=== PATIENT | female | born 1995 | race Caucasian/White ===

== ENCOUNTER 2024-09-19 08:52 | Emergency (ER) | payer OTHER, SELFPAY ==
[2024-09-19 09:09] VITALS: BP 135/87; PULSE 91; RESP 18; TEMP 36.9; O2SAT 100; BMI 37.1
[2024-09-19 09:51] LABS: Add Urine Microscopic? NO
[2024-09-19 09:54] VITALS: BP 132/86; PULSE 95; O2SAT 100
[2024-09-19 10:19] LABS: Bilirubin Urine Negative (Negative); Blood Urine Negative (Negative); Glucose Urine UA Negative (Normal); Ketones Urine Negative (Negative); Leukocyte Esterase Urine Negative (Negative); Nitrate Urine Negative (Negative); Protein Urine Negative (Negative); Specific Gravity, Urine 1.008 (1.005-1.030); Urine Appearance Clear (CLEAR); Urine Color Yellow (Yellow); pH Urine 6.5 (5-7)
[2024-09-19 10:21] LABS: Add Urine Culture? No; Charge for UA Resulting for Rev
--- NOTE | 2024-09-19 10:34 | W.ED.FEMALGU ---
HPI - Female Genitourinary General: Chief complaint: Vaginal Bleeding Stated complaint: heavy bleeding and cramps Time Seen by Provider: 09/19/24 09:30 History of Present Illness: 28 female presents emergency room with mental menorrhagia. She states her periods are usually fairly regular she does not believe she is she has not previously been . She is not on any kind of control. She been having some light spotting for the last several days and today's began having much more spotting cramping and passing some clots at times. No dysuria urgency or frequency no other abdominal pain or flank pain. No vomiting no diarrhea Associated symptoms: Deny abdominal pain Related Data Home Medications Medication Instructions Recorded Confirmed acetaminophen 500 mg tablet 500 mg PO Q6H PRN Pain 09/19/24 09/19/24 (Tylenol Extra Strength) escitalopram oxalate 10 mg tablet 10 mg PO QPM 09/19/24 09/19/24 Previous Rx's Medication Instructions Recorded medroxyprogesterone 10 mg tablet 10 mg PO DAILY 10 days #10 tabs 09/19/24 Allergies Allergy/AdvReac Type Severity Reaction Status Date / Time prednisone Allergy ALGY-Hives Verified 09/19/24 09:13 Review of Systems Const: Denies: fever(s) or chills Card: Denies: chest pain Resp: Denies: dyspnea GI: Denies: abdominal pain : Reports: vaginal bleeding; Denies: dysuria, urinary frequency or urinary urgency Musc: Denies: neck pain or back pain Skin/Breast: Denies: rash Physical Exam Const: GENERAL APPEARANCE: cooperative ORIENTATION/CONSCIOUSNESS: Yes awake, Yes oriented to person, Yes oriented to place and Yes oriented to time HENMT: COMMON NORMALS: normocephalic, atraumatic and hearing grossly normal bilaterally HEAD & SCALP: normocephalic and atraumatic Resp: COMMON NORMALS: normal respiratory effort, No retractions, No use of accessory muscles and clear to auscultation bilaterally AUSCULTATION: clear to auscultation bilaterally Cardio: COMMON NORMALS: regular rate, regular rhythm and No murmurs present (Cardio) RATE: regular rate RHYTHM: regular rhythm GI: COMMON NORMALS: Soft to palpation and No hepatosplenomegaly present AUSCULTATION: Yes normoactive bowel sounds PALPATION: Yes Soft to palpation, No Tenderness to palpation present (GI), No Guarding due to palpation present (GI) and Yes No hepatosplenomegaly present Extremity: COMMON NORMALS: normal to inspection, capillary refill normal, no clubbing, cyanosis or edema, no calf tenderness and no pedal edema Neuro: SENSORIUM/ORIENTATION: Yes oriented to person, Yes oriented to place and Yes oriented to time Skin: COMMON NORMALS: no rashes or lesions noted GENERAL SKIN EXAM: no rashes or lesions noted Course Vital Signs: Vital signs: Vital Signs Temperature 98.4 F 09/19/24 09:09 Pulse Rate 86 09/19/24 11:52 Respiratory Rate 18 09/19/24 09:09 Blood Pressure 137/93 09/19/24 11:52 Pulse Oximetry 100 09/19/24 11:52 Oxygen Delivery Me thod Room Air 09/19/24 09:09 MDM - Female Medical Decision Making Hemoglobin stable test negative put patient on a medroxyprogesterone course discussed how this works that she will have a heavy period after she finishes a course for bleeding is not stopped next couple days she should contact her doctor to potentially to have the dose increased. 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 Lab Data I reviewed the patient's lab results. 09/19/24 10:40 09/19/24 10:40 Laboratory Results WBC 9.75 10^3/uL (3.29-11.43) 09/19/24 10:40 RBC 4.74 10^6/uL (3.85-5.65) 09/19/24 10:40 Hgb 14.20 g/dL (11.27-16.99) 09/19/24 10:40 Hct 43.6 % (36-47) 09/19/24 10:40 MCV 92.0 fl (85-98) 09/19/24 10:40 MCH 30.0 pg (27-33) 09/19/24 10:40 MCHC 32.6 g/dL (30-55) 09/19/24 10:40 RDW 13.0 % (12.1-15.1) 09/19/24 10:40 Plt Count 343 10^3/cmm (157-399) 09/19/24 10:40 MPV 9.6 fL (7.4-10.4) 09/19/24 10:40 Neut % (Auto) 68.3 % 09/19/24 10:40 Lymph % (Auto) 23.3 % 09/19/24 10:40 [place] % (Auto) 6.2 % 09/19/24 10:40 Eos % (Auto) 1.4 % 09/19/24 10:40 Baso % (Auto) 0.4 % 09/19/24 10:40 Neut # (Auto) 6.66 10^3/uL (1.8-7.7) 09/19/24 10:40 Lymph # (Auto) 2.3 10^3/uL (0.8-4.8) 09/19/24 10:40 [place] # (Auto) 0.6 10^3/uL (0.2-0.9) 09/19/24 10:40 Eos # (Auto) 0.1 10^3/uL (0.0-0.8) 09/19/24 10:40 Baso # (Auto) 0.0 10^3/uL (0.0-0.1) 09/19/24 10:40 Nucleated RBC % (auto) 0 % 09/19/24 10:40 Nucleated RBCs # 0.0 /100WBC 09/19/24 10:40 Sodium 140 mmol/L (136-145) 09/19/24 10:40 Potassium 3.8 mmol/L (3.5-5.1) 09/19/24 10:40 Chloride 104 mmol/L (98-107) 09/19/24 10:40 Carbon Dioxide 24 mmol/L (22-29) 09/19/24 10:40 Anion Gap 15.8 (5-19) 09/19/24 10:40 BUN 8 mg/dL (6-20) 09/19/24 10:40 Creatinine 0.6 mg/dL (0.5-0.9) 09/19/24 10:40 GFR Calculation 120.8 mL/min (90-130) 09/19/24 10:40 Glucose 99 mg/dL (65-115) 09/19/24 10:40 Calculated Osmolality 288 mOsm/kg (285-295) 09/19/24 10:40 Calcium 8.4 mg/dL (8.5-10.5) L 09/19/24 10:40 Total Bilirubin 0.2 mg/dL (0.15-1.2) 09/19/24 10:40 AST 21 U/L (0-32) 09/19/24 10:40 ALT 29 U/L (0-33) 09/19/24 10:40 Alkaline Phosphatase 108 U/L (35-105) H 09/19/24 10:40 Total Protein 7.1 g/dL (6.6-8.7) 09/19/24 10:40 Albumin 4.1 g/dL (3.5-5.2) 09/19/24 10:40 Globulin 3.0 g/dL (1.3-4.6) 09/19/24 10:40 HCG, Qual Negative (Negative) 09/19/24 10:40 Urine Color Yellow (Yellow) 09/19/24 09:43 Urine Appearance Clear (CLEAR) 09/19/24 09:43 Urine pH 6.5 (5-7) 09/19/24 09:43 Ur Specific [place] 1.008 (1.005-1.030) 09/19/24 09:43 Urine Protein Negative (Negative) 09/19/24 09:43 Urine Glucose (UA) Negative (Normal) 09/19/24 09:43 Urine Ketones Negative (Negative) 09/19/24 09:43 Urine Blood Negative (Negative) 09/19/24 09:43 Urine Nitrate Negative (Negative) 09/19/24 09:43 Urine Bilirubin Negative (Negative) 09/19/24 09:43 Urine Urobilinogen 1.0 mg/dL (Negative) 09/19/24 09:43 Ur Leukocyte Esterase Negative (Negative) 09/19/24 09:43 Amorphous Sediment Not Reportable 09/19/24 09:43 All radiology interpretation(s) finalized by discharge Discharge Plan Discharge Patient Disposition: Home Clinical Impression: Menometrorrhagia Condition: Stable Prescriptions: New medroxyprogesterone 10 mg tablet 10 mg PO DAILY 10 Days Qty: 10 0RF No Action acetaminophen [Tylenol Extra Strength] 500 mg Tablet 500 mg PO Q6H PRN (Reason: Pain) escitalopram oxalate 10 mg tablet 10 mg PO QPM Discharge Orders: Discharge ED (Routine); Ordered 09/19/24 Ordered By: Porter Morris Referrals: Rocky Mai [Family Provider] - Discharge Diet: Usual diet Discharge Activity: Increase activity as tolerated Patient Instructions: Opioid Safety, Pain Management Activity Restrictions/Additional Instructions: Thank you for choosing [facility] for your healthcare needs today. It is very important that you follow up as instructed or that you return to the Emergency Department should you have concerns or if your condition changes or worsens in any way. You are seen in the emergency room with complaints of pelvic cramping and vaginal bleeding. Your hemoglobin is stable your test was negative. Recommend you take medroxyprogesterone 10 mg once daily for 7 days at the end of that time you will have a heavy period. You should follow-up with your primary care physician. Coding Level of Care Code ED Fagoting Machine Operator for Tyree Rosa
[2024-09-19 10:53] LABS: Basophils % 0.4 %; Eosinophils # 0.1 10^3/uL (0.0-0.8); Eosinophils % 1.4 %; Hematocrit 43.6 % (36-47); Lymphocytes # 2.3 10^3/uL (0.8-4.8); Lymphocytes % 23.3 %; Mean Corpuscular HGB Conc 32.6 g/dL (30-55); Mean Platelet Volume 9.6 fL (7.4-10.4); Monocytes # 0.6 10^3/uL (0.2-0.9); Monocytes % 6.2 %; Neutrophils # 6.66 10^3/uL (1.8-7.7); Neutrophils % 68.3 %; Nucleated Red Blood Cells % 0 %; Platelet Count 343 10^3/cmm (157-399); Red Blood Count 4.74 10^6/uL (3.85-5.65); White Blood Count 9.75 10^3/uL (3.29-11.43)
[2024-09-19 11:08] LABS: HCG, Serum Qual Negative (Negative)
[2024-09-19 11:11] LABS: Alanine Aminotransferase 29 U/L (0-33); Albumin Level 4.1 g/dL (3.5-5.2); Alkaline Phosphatase 108 U/L (35-105); Anion Gap 15.8 (5-19); Aspartate Amino Transferase 21 U/L (0-32); Blood Urea Nitrogen 8 mg/dL (6-20); Calcium 8.4 mg/dL (8.5-10.5); Carbon Dioxide 24 mmol/L (22-29); Chloride 104 mmol/L (98-107); Creatinine Clr Calc Pharmacy 173.4115; Glomerular Filtration Rate 120.8 mL/min (90-130); Glucose 99 mg/dL (65-115); Osmolality Calculated 288 mOsm/kg (285-295); Potassium 3.8 mmol/L (3.5-5.1); Sodium 140 mmol/L (136-145); Total Bilirubin 0.2 mg/dL (0.15-1.2); Total Protein 7.1 g/dL (6.6-8.7)
[2024-09-19 11:52] VITALS: BP 137/93; PULSE 86; O2SAT 100
== END 2024-09-19 11:55 | disposition home or self-care (01) ==
PROVIDERS: Emergency Provider Family Medicine; Family Provider Physician Assistant
DX: N92.1 Excessive and frequent menstruation with irregular cycle (principal)
CPT/HCPCS: 36415; 80053; 81003; 84703; 85025; 99283

== ENCOUNTER → 2024-12-06 10:02 | Outpatient (BNVA) | payer SELFPAY | PROVIDERS: Family Provider Physician Assistant; Visit Provider Obstetrics & Gynecology | DX: Z12.4 Encounter for screening for malignant neoplasm of cervix (principal); N92.1 Excessive and frequent menstruation with irregular cycle | CPT/HCPCS: 80053; 84146; 84443; 85025; 87624 ==

== ENCOUNTER → 2024-12-18 12:19 | Outpatient (BNVA) | payer SELFPAY | PROVIDERS: Family Provider Physician Assistant; Visit Provider Obstetrics & Gynecology | DX: N92.1 Excessive and frequent menstruation with irregular cycle (principal); N94.19 Other specified dyspareunia; N83.02 Follicular cyst of left ovary; N83.01 Follicular cyst of right ovary | CPT/HCPCS: 76830 ==

== ENCOUNTER 2025-01-13 16:01 | Emergency (ER) | payer SELFPAY ==
[2025-01-13 16:13] VITALS: BP 118/78; PULSE 91; TEMP 36.7; O2SAT 98
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
== END 2025-01-13 18:44 | disposition home or self-care (01) ==
PROVIDERS: Emergency Provider Physician Assistant; Family Provider Physician Assistant
DX: S60.222A Contusion of left hand, initial encounter (principal); S00.83XA Contusion of other part of head, initial encounter; V89.2XXA Person injured in unspecified motor-vehicle accident, traffic, initial encounter
CPT/HCPCS: 70486; 73130; 99284

== ENCOUNTER 2025-01-19 13:17 | Emergency (ER) | payer SELFPAY ==
[2025-01-19 13:20] VITALS: BP 136/73; PULSE 96; RESP 15; TEMP 36.6; O2SAT 100; BMI 37.1
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
[2025-01-19 15:10] VITALS: BP 135/71; PULSE 82; O2SAT 100
== END 2025-01-19 21:08 | disposition home or self-care (01) ==
PROVIDERS: Emergency Provider Emergency Medicine; Family Provider Physician Assistant
DX: M23.92 Unspecified internal derangement of left knee (principal); V89.2XXA Person injured in unspecified motor-vehicle accident, traffic, initial encounter
CPT/HCPCS: 73562; 99283

== ENCOUNTER → 2025-01-22 14:24 | Outpatient (BNVA) | payer SELFPAY | PROVIDERS: Family Provider Physician Assistant; Visit Provider Nurse Practitioner | DX: M23.92 Unspecified internal derangement of left knee (principal); S83.207A Unspecified tear of unspecified meniscus, current injury, left knee, initial encounter; V89.2XXA Person injured in unspecified motor-vehicle accident, traffic, initial encounter | CPT/HCPCS: 73560; 73565 ==

== ENCOUNTER 2025-01-29 12:18 | Outpatient (CLI) | payer SELFPAY ==
--- NOTE | 2025-01-29 12:15 | MR_ITS ---
WS: [id number] MRI LEFT KNEE NONCONTRAST TECHNIQUE: Axial PD, coronal PD fat sat, coronal PD, sagittal PD, and sagittal PD fat-sat images obtained. CLINICAL INFORMATION: KNEE PAIN COMPARISON: None. FINDINGS: Distal quadriceps and patella tendons are intact. Normal ACL and PCL. Mild lateral subluxation of the patella. Recommend correlation for patellar instability. Medial lateral patellar retinaculum appear intact. Slightly shallow trochlear groove. No visualized bony contusion. Medial and lateral meniscus are normal in appearance. No acute appearing meniscal tears. Fibular head appears normal. Normal medial lateral collateral ligaments. MR/MR knee LT wo con* [id number] IMPRESSION: 1. Normal ACL and PCL. 2. Medial and lateral meniscus appear intact. 3. Lateral subluxation of the patella. Mild chondromalacia patella. Somewhat s hallow trochlear groove. Recommend correlation for patellar instability. Outbridge grading: grade II: blister-like swelling/fraying of articular cartila ge extending to surface
== END 2025-01-29 12:19 | disposition home or self-care (01) ==
LOC: RAD 12:21
PROVIDERS: Family Provider Physician Assistant; PCP Nurse Practitioner Family; Visit Provider Nurse Practitioner
DX: S83.012A Lateral subluxation of left patella, initial encounter (principal); X58.XXXA Exposure to other specified factors, initial encounter; M22.42 Chondromalacia patellae, left knee
CPT/HCPCS: 73721